=== PATIENT | female | born 1940 | race Caucasian/White ===

== ENCOUNTER 2021-04-01 08:28 | Inpatient (IN) | payer MEDICARE, OTHER ==
[~2021-04-01] VITALS: Ht 167.6 cm; Wt 68.9 kg
[2021-04-01] MEDS ORDERED: OXYCODONE (08:46)
[2021-04-01] MEDS ORDERED: AMITRIPTYLINE (08:46)
[2021-04-01] MEDS ORDERED: PRILOSEC (08:46)
[2021-04-01] MEDS ORDERED: LEVOTHYROXINE (08:46)
[2021-04-01] MEDS ORDERED: METOPROLOL TART (08:46)
--- NOTE | 2021-04-01 08:46 | NUR ---
PT DOES NOT REMEMBER ALL THE NAMES AND DOSAGES OF HER HOME MEDICATION. PT's MARISSAORLYER IS GOING TO BRING PT's HOME MEDICATION LIST LATER.
[2021-04-01 09:06] LABS: MEAN CORPUSCULAR HEMOGLOBIN 28.8 uug (24.7-32.8); MEAN CORPUSCULAR VOLUME 84.7 fL (75.5-95.3); PLATELET COUNT (AUTO) 244 K/uL (179-408)
[2021-04-01 09:19] LABS: ETHANOL < 3 MG/DL (0-0)
[2021-04-01 09:31] LABS: CARBON DIOXIDE 29 mmol/L (21-32); CHLORIDE 102 mmol/L (98-107); CREATININE 0.7 mg/dL (0.6-1.3); GLUCOSE 120 mg/dL (74-106); POTASSIUM 3.7 mmol/L (3.5-5.1); UREA NITROGEN, BLOOD 15 mg/dL (7-18)
[2021-04-01 09:36] LABS: *BILIRUBIN,URIN NEGATIVE (NEGATIVE); *CLARITY,URINE CLEAR (CLEAR); *COLOR,URINE YELLOW (YELLOW); *KETONES,URINE 1+ (NEGATIVE); *UROBILINOGEN,URINE 0.2 E.U./dl (NORMAL); LEUKOCYTE ESTERASE ,URINE NEGATIVE (NEGATIVE); NITRITE, URINE NEGATIVE (NEGATIVE); PH,URINE 7.5 (5.0-8.0); UGLUCOSE NEGATIVE (NEGATIVE)
[2021-04-01 09:41] LABS: *BLOOD, URINE TRACE (NEGATIVE)
[2021-04-01 09:48] LABS: ACETAMINOPHEN 3.7 ug/mL (10-30); ALANINE AMINOTRANSFERASE 21 U/L (14-59); ALKALINE PHOSPHATASE 68 U/L (50-136); ASPARTATE AMINOTRANSFERASE 13 U/L (15-37); BILIRUBIN,DIRECT 0.1 mg/dL (0.0-0.2); BILIRUBIN,TOTAL 0.6 mg/dL (0.2-1.0); TOTAL PROTEIN, SERUM 8.1 g/dL (6.4-8.2)
[2021-04-01 09:55] LABS: *AMPHETAMINE, URINE NEGATIVE (NEGATIVE); *CANNABINOID, URINE NEGATIVE (NEGATIVE); *COCCAINE, URINE NEGATIVE (NEGATIVE); *OPIATE, URINE POSITIVE (NEGATIVE); *PHENCYCLIDINE SCREEN,URINE NEGATIVE (NEGATIVE)
--- NOTE | 2021-04-01 11:44 | NUR ---
Called report to GINETTE Yanez.
[2021-04-01 12:00] VITALS: BP 138/55
[2021-04-01 14:51] LABS: BACTERIA,URINE NONE SEEN /HPF (NONE SEEN); RBC,URINE 0-3 /HPF (0-3); SQUAMOUS EPITHELIAL CELL,UR FEW /HPF (NONE SEEN); WBC,URINE NONE SEEN /HPF (0-3)
[2021-04-01] MEDS: OXYCODONE HCL 5 MG TABLET PO PRN (15:58)
[2021-04-01 16:00] VITALS: BP 124/70
[2021-04-01] MEDS ORDERED: CLONIDINE HCL 0.2 MG TABLET PO PRN (16:00)
[2021-04-01] MEDS ORDERED: ONDANSETRON ODT 4 MG TAB.RAPDIS SL PRN (16:00)
--- NOTE | 2021-04-01 20:00 | NUR ---
Pt's son came and brought photos of pt's meds; some medications appears does not show dosages; need to contact [facility] ([phone]) tomorrow at 0900H will endorse; pt's family Evelio asking for MD to call him in AM at [phone]
[2021-04-01] MEDS ORDERED: OXYC-133 PO (20:21)
[2021-04-01] MEDS ORDERED: OMEP20TA5 PO (20:21)
[2021-04-01] MEDS ORDERED: DULO30CA52 PO (20:21)
[2021-04-01] MEDS ORDERED: QUET25TA PO (20:21)
[2021-04-01] MEDS ORDERED: SIMV-49 PO (20:21)
[2021-04-01] MEDS ORDERED: [UNRECOGNIZED DRUG - CODE] PO (20:21)
[2021-04-01 22:40] VITALS: BP 171/65
[2021-04-01] MEDS ORDERED: QUETIAPINE FUMARATE 25 MG TABLET PO SCH (23:00)
[2021-04-02 04:20] VITALS: BP 187/72
--- NOTE | 2021-04-02 06:04 | NUR ---
TEXTED DR. DURAN FOR MRI APPROVAL.
[2021-04-02 07:04] LABS: THYROID STIMULATING HORMONE 1.409 mIU/mL (0.358-3.740)
--- NOTE | 2021-04-02 07:55 | NUR ---
received in bed sleeping vs are stable call light with in reach bed alarm on no c/o pain noted .we will continue to monitor
[2021-04-02] MEDS: OXYCODONE HCL 5 MG TABLET PO PRN ×2 (08:17→16:58)
[2021-04-02 16:00] VITALS: BP 138/60
[2021-04-02] MEDS ORDERED: OXYB10TA30 PO (17:38)
--- NOTE | 2021-04-02 18:15 | NUR ---
dc orders received noted and carried out .dc instruction and education given to the ot and her son .pt said she will follow up with her pcp pt left the facility via private car in stable condition
== END 2021-04-02 18:19 | disposition home or self-care (01) | DRG 312 ==
LOC: ER 08:28 → EDBD 11:51 → TELE3 11:51 → MEDSURG3 20:50
PROVIDERS: ADMIT Internal Medicine Nephrology; ATTEND Internal Medicine Nephrology
DX: R55 Syncope and collapse (principal); R29.6 Repeated falls; R32 Unspecified urinary incontinence; R53.1 Weakness; G89.29 Other chronic pain; E78.5 Hyperlipidemia, unspecified; I10 Essential (primary) hypertension; Z91.51 Personal history of suicidal behavior; Z79.891 Long term (current) use of opiate analgesic; W18.30XA Fall on same level, unspecified, initial encounter; Y93.9 Activity, unspecified; Y92.009 Unspecified place in unspecified non-institutional (private) residence as the place of occurrence of the external cause; Z20.822 Contact with and (suspected) exposure to COVID-19
CPT/HCPCS: 36415; 70030-TC; 70450; 70551; 71045; 72125; 84443; 85025; 85730; 93005; 97161; A4663; G0378; G0480

== ENCOUNTER 2021-05-24 23:27 | Emergency (ER) | payer MEDICARE, OTHER ==
[~2021-05-24] VITALS: Ht 162.6 cm; Wt 63.5 kg
[~2021-05-24 23:27] MED LIST: DULO30CA52 PO; OMEP20TA5 PO; OXYB10TA30 PO; OXYC-133 PO; QUET25TA PO; SIMV-49 PO; [UNRECOGNIZED DRUG - CODE] PO
--- NOTE | 2021-05-24 23:45 | NUR ---
Pt bib RA 88 for AMS s/p poss OD, pt seems to have a history of heavy pill usage based on the vast amount of different kinds of pills scattered throughout her appartment. Paramedics also state that they saw 2 used canisters of narcan amoung all the pills she had. VSS, PE WNL, pt slightly hypertensive at 164/63, 98%RA, 90bpm, 20rpm. Pt awake but unable to answer questions or follow commands. Pt appears to be speaking jiberis
[2021-05-25] MEDS ORDERED: ONDANSETRON 4 MG/2 ML VIAL IV ONE
[2021-05-25] MEDS ORDERED: CHARCOAL/SORBITOL SOLUTION 50 GM/240 ML BOTTLE PO ONE
[2021-05-25] MEDS ORDERED: ONDANSETRON 4 MG/2 ML VIAL ONE (00:04)
[2021-05-25 00:05] LABS: HEMATOCRIT 36.6 % (31.2-41.9); MEAN CORPUSCULAR HEMOGLOBIN 28.4 uug (24.7-32.8); MEAN CORPUSCULAR VOLUME 87.3 fL (75.5-95.3); PLATELET COUNT (AUTO) 214 K/uL (179-408)
[2021-05-25] MEDS ORDERED: CHARCOAL/SORBITOL SOLUTION 50 GM/240 ML BOTTLE ONE (00:05)
[2021-05-25 00:06] LABS: CARBON DIOXIDE 28 mmol/L (21-32); CHLORIDE 106 mmol/L (98-107); CREATININE 0.7 mg/dL (0.6-1.3); GLUCOSE 108 mg/dL (74-106); POTASSIUM 3.3 mmol/L (3.5-5.1); UREA NITROGEN, BLOOD 15 mg/dL (7-18)
[2021-05-25 00:12] LABS: ALANINE AMINOTRANSFERASE 20 U/L (14-59); ALKALINE PHOSPHATASE 74 U/L (50-136); ASPARTATE AMINOTRANSFERASE 21 U/L (15-37); BILIRUBIN,DIRECT 0.1 mg/dL (0.0-0.2); BILIRUBIN,TOTAL 0.4 mg/dL (0.2-1.0); CREATINE KINASE, TOTAL 111 U/L (26-192); TOTAL PROTEIN, SERUM 7.3 g/dL (6.4-8.2)
[2021-05-25] MEDS ORDERED: ALBUTEROL SULFATE 2.5 MG/3 ML NEBU NEB ONE (00:15)
[2021-05-25 00:18] LABS: ACETAMINOPHEN < 2.0 ug/mL (10-30)
[2021-05-25 00:23] LABS: ETHANOL < 3 MG/DL (0-0)
[2021-05-25] MEDS ORDERED: ALBUTEROL SULFATE 2.5 MG/3 ML NEBU ONE (00:30)
[2021-05-25 00:51] LABS: THYROID STIMULATING HORMONE 4.018 mIU/mL (0.358-3.740)
--- NOTE | 2021-05-25 01:54 | NUR ---
Pt's condition has improved greatly. Does not appear to be hullucinating or having behavioral/cognitive issues any longer. However, pt still cant answer any questions. Pt is sleeping soundly with audible snorring. VSS, 150/87, 86bpm,100% 2L NC, 16rpm, SR with rare PVCs. Pt's condition has improved greatly. both rails up, pt on bedside monitor, will continue to monitor closely.
--- NOTE | 2021-05-25 02:55 | NUR ---
Pt awoke asking to go to the bathroom. Pt is almost completely lucid now, aaox3, speaking in complete sentences. Pt placed on bedpan and urinated a scant amount approx 20cc clear yellow output. Pt denies any SI or mental illness. States that she "loves her life" and "loves her family and would never even thing about doing such a thing". Pt seems to be getting better and better over time so pt encouraged to get some rest and that she will be better able to peice things tge and find out what happened. Pt seems sincere and honest. VSS, PE wnl, strong and equal educational advisor strength bilat. good distal pulses x4ext. SR with freq PAVs and rare PVC's. no s/sx of distress present.
--- NOTE | 2021-05-25 04:46 | NUR ---
Pt awoke again asking for the bedpan. Pt placed on bedpan and VS taken. Pt states that she has an appt today to go see her back surgeon, I told her that we will reasses sometime in during just before or just after shift change and if the EDMD deems her safe to be DCed home, then we will DC her home, but that in the mean time she should get some rest while she is here. Pt voided approx 300-400cc of clear yellow output via bedpan. Pt is clean and dry and resting quietly in pos of comfort.
--- NOTE | 2021-05-25 05:59 | NUR ---
Pt sleeping soundly in pos of comfort with audible snorring. VSS.
--- NOTE | 2021-05-25 06:54 | NUR ---
During MD shift change, both Dr. Pillai and Dr. Senior agreed that pt ought to have psych consult before DCed home. Need to collect specimen of urine for tox screen before calling crisis rep. Pt in bathroom currently providing a sample.
--- NOTE | 2021-05-25 07:11 | NUR ---
ua specimen collected labled and sent for UA tox screen. Once resulted can call crisis team for eval. Thorough report given to PALMER Nieto RN
[2021-05-25 07:26] LABS: *BILIRUBIN,URIN NEGATIVE (NEGATIVE); *CLARITY,URINE CLEAR (CLEAR); *COLOR,URINE YELLOW (YELLOW); *KETONES,URINE 2+ (NEGATIVE); *UROBILINOGEN,URINE 0.2 E.U./dl (NORMAL); LEUKOCYTE ESTERASE ,URINE NEGATIVE (NEGATIVE); NITRITE, URINE NEGATIVE (NEGATIVE); PH,URINE 7.5 (5.0-8.0); UGLUCOSE NEGATIVE (NEGATIVE)
[2021-05-25 07:27] LABS: *BLOOD, URINE TRACE (NEGATIVE)
[2021-05-25 07:33] LABS: *AMPHETAMINE, URINE NEGATIVE (NEGATIVE); *CANNABINOID, URINE NEGATIVE (NEGATIVE); *COCCAINE, URINE NEGATIVE (NEGATIVE); *OPIATE, URINE POSITIVE (NEGATIVE); *PHENCYCLIDINE SCREEN,URINE NEGATIVE (NEGATIVE)
--- NOTE | 2021-05-25 08:53 | NUR ---
0848am: [email or web address]'s [email or web address].
--- NOTE | 2021-05-25 09:01 | NUR ---
Patient is resting comfortably on gurney with eyes closed, pending (psych logging worker) Art's evaluation@this time.
--- NOTE | 2021-05-25 09:21 | NUR ---
Patient ate breakfast with good appetite, NAD, calm & cooperative@this time.
--- NOTE | 2021-05-25 09:36 | NUR ---
Patient ambulated to bathroom with steady gait, NAD.
--- NOTE | 2021-05-25 09:43 | NUR ---
Juan Gregory is now here in ER.
--- NOTE | 2021-05-25 09:52 | NUR ---
Art [email or web address] evaluating patient.
--- NOTE | 2021-05-25 10:28 | NUR ---
Patient said her son & nephew are coming to pick her up.
--- NOTE | 2021-05-25 10:38 | NUR ---
Patient is for discharged to home in stable condition. Written and verbal after care instructions given to patient. Patient verbalized understanding and compliance of instructions. Stressed follow up with primary doctor and psychiatrist or return to ER for worsening s/s. Patient is now waiting for her ride (son or nephew or both are coming per patient).
--- NOTE | 2021-05-25 11:15 | NUR ---
Patient's family are here. Patient left ER with steady gait and stable condition.
[2021-05-25 12:22] LABS: BACTERIA,URINE NONE SEEN /HPF (NONE SEEN); RBC,URINE 0-3 /HPF (0-3); SQUAMOUS EPITHELIAL CELL,UR FEW /HPF (NONE SEEN); WBC,URINE 0-3 /HPF (0-3)
== END 2021-05-25 11:15 | disposition home or self-care (01) ==
LOC: ER 23:32
DX: G93.40 Encephalopathy, unspecified (principal); I10 Essential (primary) hypertension; E78.5 Hyperlipidemia, unspecified; K21.9 Gastro-esophageal reflux disease without esophagitis; Z88.8 Allergy status to other drugs, medicaments and biological substances; Z79.899 Other long term (current) drug therapy
CPT/HCPCS: 36415 ×2; 71045; 80048; 80076; 80299; 80307; 80320; 81001; 82550; 82962; 83880; 84443; 84484; 85025; 85730; 93005; 94664; 96374; 99285; J2405; 70030-TC; A4663; G0480